=== PATIENT | male | born 1980 | race Caucasian/White ===

== ENCOUNTER 2018-02-10 12:04 | Emergency (ER) | payer SELFPAY ==
--- NOTE | 2018-02-10 13:21 | RAD ---
INDICATION: Pain at the proximal interphalangeal joint of the left small finger after a fall COMPARISON: None. TECHNIQUE: 3 views of the left small finger were obtained. FINDINGS: On the lateral view radiograph there is a tiny bony focus overlying the palmar aspect of the left small finger proximal interphalangeal joint. No definite donor site is identified. The visualized bones are otherwise intact and appropriately aligned. IMPRESSION: POSSIBLE TINY AVULSION FRACTURE AT THE VOLAR ASPECT OF THE LEFT SMALL FINGER PROXIMAL INTERPHALANGEAL JOINT.
--- NOTE | 2018-02-10 14:24 | UC ---
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 Patient has full range of motion neuro motor and circulation intact distally. Patient complains of some tenderness to palpation - History Of Current Complaint Chief Complaint: UCUpperExtremity Stated Complaint: FINGER INJURY Time Seen by Provider: 02/10/18 14:17 Hx Obtained From: Patient ?: No Mechanism Of Injury: Left fifth finger bent backward Onset/Duration: Sudden Onset Severity Initially: Mild Severity Currently: Mild Pain Intensity: 2 Pain Scale Used: 0-10 Numeric Character Of Pain: Aching, Throbbing Alleviating Factor(s): Nothing Associated Signs And Symptoms: Positive: Other - Some pain left PIP joint Related History: Dominant Hand Right - Allergies/Home Medications Allergies/Adverse Reactions: Allergies Allergy/AdvReac Type Severity Reaction Status Date / Time bee venom protein (honey bee) Allergy throat Verified 02/10/18 12:32 swelling erythromycin base Allergy Hives Verified 02/10/18 12:32 Home Medications: Home Medications NK [No Home Medications Reported] 02/10/18 [History Confirmed 02/10/18] PMH/Surg Hx/FS Hx/Imm Hx Previously Healthy: Yes - Surgical History Surgical History: Yes Surgery Procedure, Year, and Place: right elbow surgery,. small bowel surgery x 3 - Family History Known Family History: Positive: None - Social History Occupation: Employed Full-time Lives: With Family Alcohol Use: None Substance Use Type: None Smoking Status (MU): Light Every Day Tobacco Smoker Review of Systems Constitutional: Negative Skin: Negative Eyes: Negative ENT: Negative Respiratory: Negative Cardiovascular: Negative Gastrointestinal: Negative Genitourinary: Negative Motor: Negative Neurovascular: Negative Musculoskeletal: Arthralgia - Left fifth PIP Neurological: Negative Psychological: Negative Is Patient Immunocompromised?: No All Other Systems Reviewed And Are Negative: Yes Physical Exam Triage Information Reviewed: Yes Appearance: Well-Appearing, No Pain Distress, Well-Nourished Vital Signs: Initial Vital Signs Temp 99.3 F 02/10/18 12:25 Pulse 87 02/10/18 12:25 Resp 15 02/10/18 12:25 BP 108/74 02/10/18 12:25 Pulse Ox 98 02/10/18 12:25 Vital Signs Reviewed: Yes Eye Exam: Normal Eyes: Positive: Conjunctiva Clear ENT Exam: Normal ENT: Positive: Normal ENT inspection, Hearing grossly normal. Negative: Nasal congestion, Trismus, Muffled voice, Hoarse voice Dental Exam: Normal Neck exam: Normal Neck: Positive: Supple, Nontender Respiratory Exam: Normal Respiratory: Positive: Chest non-tender, No respiratory distress, No accessory muscle use Cardiovascular Exam: Normal Cardiovascular: Positive: Pulses Normal, Brisk Capillary Refill Musculoskeletal Exam: Normal Musculoskeletal: Positive: Strength Intact, ROM Intact, No Edema Neurological Exam: Normal Neurological: Positive: Alert, Muscle Tone Normal Psychological Exam: Normal Skin Exam: Normal Diagnostics - Laboratory ABG Interpretation: avulsion fracture left fifth PIP Hand/Wrist Course/Dx - Course Course Of Treatment: Erwin tape brace ibuprofen follow with orthopedic surgeon - Differential Dx/Diagnosis Provider Diagnoses: nondisplaced avulsion fracture left fifth finger PIP joint Discharge - Sign-Out/Discharge Documenting (check all that apply): Discharge - Discharge Plan Condition: Stable Disposition: HOME Patient Education Materials: Ibuprofen (By mouth), Finger Fracture (ED), R.I.C.E. Treatment (ED), Avulsion Fracture (ED) Referrals: Bartolome Goode MD [Medical Doctor] - 1 Week - Billing Disposition and Condition Condition: STABLE Disposition: HOME
== END 2018-02-10 14:33 | disposition home or self-care (01) ==
LOC: UCEAST 12:04
DX: S69.92XA Unspecified injury of left wrist, hand and finger(s), initial encounter (principal); X50.1XXA Overexertion from prolonged static or awkward postures, initial encounter; Y93.89 Activity, other specified; Y92.89 Other specified places as the place of occurrence of the external cause; Y99.0 Civilian activity done for income or pay; Z88.1 Allergy status to other antibiotic agents; Z91.030 Bee allergy status; F17.210 Nicotine dependence, cigarettes, uncomplicated
CPT/HCPCS: 73140; 99201; G0463